=== PATIENT | female | born 1995 | race Caucasian/White ===

== ENCOUNTER 2022-08-05 08:19 | Emergency (ER) | payer OTHER ==
[2022-08-05 08:56] LABS: #Eosinphils 0.1 thou/uL (0.0-0.7); #Lymphocytes 2.1 thou/uL (1.20-3.40); #Monocytes 0.4 thou/uL (0.11-0.59); #Neutrophils 4.2 thou/uL (1.40-6.50); %Basophils 0.4 % (0.0-1.0); %Eosinophils 1.6 % (0.0-10.0); %Lymphocytes 30.6 % (21.0-51.0); %Neutrophils 61.4 % (42.0-75.0); Hemoglobin 13.8 g/dL (12.0-16.0); Mean Corpuscular HGB CONC 32.4 g/dL (32.0-36.0); Mean Corpuscular Hemoglobin 27.4 pg (27.0-31.0); Mean Corpuscular Volume 84.5 fl (78.0-98.0); Mean Platelet Volume 6.9 fL (7.4-10.4); Platelet Count 340 10x3/uL (130-400); RBC Distribution Width 11.8 % (11.5-14.5); Red Blood Cell (RBC) Count 5.05 mill/uL (4.20-5.40); White Blood Cell (WBC) Count 6.9 10x3/uL (4.8-10.8)
[2022-08-05 09:09] LABS: BHCG - Serum Negative (NEGATIVE); Pregs Control Background? CLEAR/WHITE (CLR/WHITE); Pregs Control Bar Appear? YES (CONTROL BAR)
[2022-08-05 09:20] LABS: ALT (SGPT) 11 U/L (8-55); AST (SGOT) 15 U/L (5-34); Albumin 4.1 g/dL (3.5-5.0); Alkaline Phosphatase 98 U/L (40-110); Anion Gap 12 mmol/L (10-20); BUN (Urea Nitrogen) 13 mg/dL (7.0-18.7); Bilirubin, Total 0.4 mg/dL (0.2-1.2); Calc. Creatinine Clearance 0 mL/min (70-130); Calcium 9.4 mg/dL (7.8-10.44); Carbon Dioxide 25 mmol/L (22-29); Chloride 104 mmol/L (98-107); Estimated GFR 114; Globulin 3.9 g/dL (2.4-3.5); Glucose 84 mg/dL (70-105); Lipase 61 U/L (8-78); Potassium 4.2 mmol/L (3.5-5.1); Sodium 137 mmol/L (136-145)
== END 2022-08-05 10:50 | disposition home or self-care (01) ==
LOC: ERS 08:19
DX: R07.9 Chest pain, unspecified (principal)
CPT/HCPCS: 36415; 71045; 80053; 83690; 84484; 84703; 85025; 93005